=== PATIENT | male | born 1940 ===

== ENCOUNTER → 2018-07-02 | Outpatient (CLI) | payer MEDICARE ==
[~2018-07-02] VITALS: Ht 179.1 cm; Wt 73.8 kg
[~2018-07-02] MED LIST: ASPI-556 PO; DABI75CA3 PO; METO50 PO; PANT40TA25 PO; PRAS10TA6 PO
[2018-07-02 15:08] VITALS: BP 126/89
== END | disposition home or self-care (01) ==
LOC: SRCNTR 14:00
PROVIDERS: ATTEND Internal Medicine Critical Care Medicine
DX: R06.00 Dyspnea, unspecified (principal); I42.9 Cardiomyopathy, unspecified; I10 Essential (primary) hypertension; Z95.810 Presence of automatic (implantable) cardiac defibrillator; R09.02 Hypoxemia
CPT/HCPCS: G0463